=== PATIENT | male | born 1945 | race Caucasian/White ===

== ENCOUNTER → 2020-08-07 09:42 | Outpatient (CLI) | payer OTHER, SELFPAY ==
[2020-08-07 11:20] LABS: COVID19 -Nasal RAPID Negative (Negative)
--- NOTE | 2020-08-07 18:52 | DI.NM.S_ITS ---
DATE OF SERVICE: 08/07/2020 PROCEDURE PERFORMED: Exercise treadmill stress and rest myocardial perfusion imaging study with gating to assess ejection fraction and regional wall motion. ORDERING PROVIDER: Dr. Paris Tran. INDICATIONS: The patient is a 74-year-old hyperlipidemic male with exertional chest discomfort and belching. EXERCISE TREADMILL STUDY: The patient was able to exercise for 7 minutes, 44 seconds on a standard Jamie protocol suggesting good exercise capacity with an SUNIL of -17%, achieving 10.1 METs. He had a normal heart rate and blood pressure response to exercise, achieving a maximum heart rate of 150 BPM (101% of his predicted maximum). He had no chest discomfort or other anginal discomfort. His resting ECG is normal with normal ST segments. There are no significant ST-segment shifts or arrhythmias with stress. At 6 minutes, 53 seconds of exercise at a heart rate of 146 BPM, 24.5 millicuries of technetium-99m Myoview was injected and he was imaged 15 minutes later using a gated SPECT acquisition protocol. Earlier in the day while at rest, he had been injected with 10.8 millicuries of technetium-99m Myoview and was imaged 30 minutes later, again using a gated SPECT acquisition protocol. FINDINGS: 1. Raw Data: There is fairly good myocardial tracer uptake. Lung/heart ratio is normal at 0.30 with a normal TID ratio of 0.77. 2. Quantitated gated SPECT: The post-stress ejection fraction is estimated at 71% without any focal wall motion abnormality and specifically the inferior wall has normal contractility. Resting ejection fraction is estimated at 69% with a normal resting end-diastolic volume of 81 mL. 3. Myocardial perfusion imaging: Post-stress supine images show a fairly normal myocardial perfusion pattern with a very subtle defect in the proximal to mid inferior wall in a pattern that would be consistent with diaphragmatic attenuation, supported by its complete resolution on the prone images which reveal a normal, homogeneous perfusion pattern. The resting images show a similar perfusion pattern to that of the post-stress supine images with no significant improvement in the mild inferior defect. IMPRESSION: 1. Normal myocardial perfusion study. 2. Mild fixed proximal inferior perfusion defect that resolves on prone imaging, consistent with diaphragmatic attenuation artifact. There is no compelling evidence for myocardial ischemia or previous myocardial infarction. 3. Normal left ventricular systolic function without focal wall motion abnormality. 4. Very good exercise capacity without provokable angina or ECG evidence of ischemia. Daryl Maxwell - TAWNY/anoop/gricelda doc#: [id number]/job#: [id number] dd: 08/07/2020 16:55:00 dt: 08/07/2020 18:04:00 DICTATING MD/COPIES TO: Ronni Avalos MD; Paris Tarn MD COPIES MNE: JUAN;
== END ==
PROVIDERS: PCP Family Medicine; Referring Provider Family Medicine; Visit Provider Family Medicine
DX: R07.89 Other chest pain (principal); E78.5 Hyperlipidemia, unspecified; R14.2 Eructation; Z20.822 Contact with and (suspected) exposure to COVID-19
CPT/HCPCS: 78452; 87635; 93017; A9502